=== PATIENT | male | born 1975 | race Caucasian/White ===

== ENCOUNTER → 2020-01-17 | Outpatient (CLI) | payer MEDICARE, MEDICAID ==
--- NOTE | 2020-01-16 14:41 | NUR ---
PHONE NUMBER LISTED FOR PT IS INCORRECT; PERSON WHO ANSWERED PHONE STATED THEY HAVE KEPT GETTING CALLS FOR THIS PT, BUT IT IS WRONG NUMBER. I CALLED SCHEDULING, THEY ARE REMOVING WRONG NUMBER FROM FILE Addendum: 01/16/20 at 1445 by ADA SALEH RT PT IS SCHEDULED FOR PFT ON 01/17/20, LOOKED UP FILE TO CONTACT PT TO REMIND OF TEST.
[~2020-01-17] MED LIST: PALI234D IM; RT-ALBUTEROL SULF 2.5 MG/3 ML PRE-MIX VIAL INH ONE
== END ==
LOC: RT 10:30
PROVIDERS: ATTEND Nurse Practitioner Family
DX: J30.9 Allergic rhinitis, unspecified (principal); R94.2 Abnormal results of pulmonary function studies; Z72.0 Tobacco use
CPT/HCPCS: 94060; 94726; 94729

== ENCOUNTER → 2020-03-11 | Outpatient (CLI) | payer MEDICARE, MEDICAID ==
[~2020-03-11] MED LIST changes: +CATHETER FLUSH 10 ML SYR IV PRN; +HOLD METFORMIN - RECEIVED CONTRAST 20 ML VIAL IV SCH; +IOHEXOL 350 MG/ML 100 ML (OMNIPAQUE 350) VIAL IV ONE; +NS 100 ML (IVPB) BAG IV ONE; -RT-ALBUTEROL SULF 2.5 MG/3 ML PRE-MIX VIAL INH ONE
--- NOTE | 2020-03-11 10:43 | Diagnostic Imaging Report ---
PROCEDURE: CT chest with contrast only. TECHNIQUE: Multiple contiguous axial images were obtained through the chest after administration of intravenous contrast. Auto Exposure Controls were utilized during the CT exam to meet ALARA standards for radiation dose reduction. INDICATION: Asthma. Shortness of breath. Smoker. FINDINGS: The lungs are well-aerated without air-trapping. There is mild pleural scarring noted in the lung bases and along the fissures bilaterally. Interstitial markings are slightly prominent bilaterally as well predominantly in a subpleural distribution. No cystic bullae. No bronchiectasis. There are no consolidated infiltrate. No masses. No mediastinal or hilar adenopathy of pathologic size. Good opacification of the aorta and pulmonary arteries which appear normal. The adrenal glands are not enlarged. IMPRESSION: 1. Pleural scarring with mild increased interstitial markings. This may represent early development of interstitial lung disease. 2. No masses or consolidated infiltrates. Dictated by: Dictated on workstation # [id number]
== END ==
LOC: RAD 09:58
PROVIDERS: ATTEND Nurse Practitioner Family
DX: J44.9 Chronic obstructive pulmonary disease, unspecified (principal)
CPT/HCPCS: 71260